=== PATIENT | male | born 1995 | race Caucasian/White ===

== ENCOUNTER 2024-11-20 16:01 | Emergency (ER) | payer OTHER ==
[~2024-11-20] VITALS: Ht 175.3 cm; Wt 85.0 kg
[2024-11-20] MEDS: dexAMETHasone 20MG/5ML VIAL IV ONE (16:40)
[2024-11-20] MEDS: ACETAMINOPHEN 500 MG TAB PO ONE (16:40)
[2024-11-20] MEDS: METHOCARBAMOL 1,000 MG/10 ML VIAL IV ONE (16:40)
[2024-11-20] MEDS: KETOROLAC 30 MG/ML 1ML VIAL IV ONE (16:40)
[2024-11-20] MEDS ORDERED: METH-1164 PO (18:09)
[2024-11-20 18:15] VITALS: BP 138/77; TEMP 98.3; O2SAT 97
== END 2024-11-20 18:19 | disposition home or self-care (01) ==
LOC: M ED 16:01
DX: M54.50 Low back pain, unspecified (principal); Z88.3 Allergy status to other anti-infective agents; Z91.013 Allergy to seafood
CPT/HCPCS: 72110; 96374; 96375; 99284; J1100; J1885; J2800